=== PATIENT | male | born 1995 | race Caucasian/White ===

== ENCOUNTER 2016-09-29 13:59 | Emergency (ER) | payer OTHER ==
[2016-09-29 16:37] LABS: BASOPHILS 0.3 % (0-2); EOSINOPHILS 1.3 % (0-7); HEMATOCRIT 46.4 % (42.0-54.0); IMMATURE GRANULOCYTES 0.2 % (0-5); LYMPHOCYTES 24.3 % (15-50); MCH 33.3 pg (26.0-34.0); MCHC 34.5 g/dL (31.0-37.0); MCV 96.5 fL (80.0-100.0); MEAN PLATELET VOLUME 10.4 fL (7.4-10.4); MONOCYTES 7.7 % (2-11); NEUTROPHILS 66.2 % (40-80); PLATELET COUNT 267 10x3/uL (130-400); RBC 4.81 10x6/uL (4.20-6.10); RDW 12.7 % (11.5-14.5); WBC 9.4 10x3/uL (4.8-10.8)
[2016-09-29 16:45] LABS: APPEARANCE HAZY (CLEAR); COLOR YELLOW (YELLOW)
[2016-09-29 16:46] LABS: BILIRUBIN NEGATIVE (NEGATIVE); GLUCOSE NEGATIVE (NEGATIVE); KETONE NEGATIVE (NEGATIVE); LEUKOCYTE ESTERASE NEGATIVE (NEGATIVE); NITRITE NEGATIVE (NEGATIVE); PROTEIN NEGATIVE (NEGATIVE); UROBILINOGEN NORMAL (NORMAL)
== END 2016-09-29 17:05 | disposition home or self-care (01) ==
LOC: D.ER 13:59
PROVIDERS: Physician Assistant
DX: R10.9 Unspecified abdominal pain (principal); S30.1XXA Contusion of abdominal wall, initial encounter; W22.8XXA Striking against or struck by other objects, initial encounter; Y93.89 Activity, other specified; Y92.89 Other specified places as the place of occurrence of the external cause